=== PATIENT | female | born 1975 | race Caucasian/White ===

== ENCOUNTER → 2016-08-01 | Outpatient (CLI) | payer BC ==
[~2016-08-01] MED LIST: BECL0.072 INH; BUDESUS; CETI10TA10 PO; MTR600X PO; OXYC-643 PO; PRENTAB26 PO; ZNT/150 PO
--- NOTE | 2016-08-01 13:18 | DIAGNOSTIC IMAGING REPORT ---
LEFT KNEE 4 OR MORE CLINICAL HISTORY: LEFT KNEE PAIN COMPARISON STUDY: None. FINDINGS: No fracture or dislocation within the left knee. Cartilage spaces are maintained. Soft tissues unremarkable. No significant knee effusion. IMPRESSION: Unremarkable left knee. Electronically signed by: Alistair Reese M.D. 08/01/2016 1:16 PM Dictated Date/Time: 08/01/2016 1:14 PM
== END | disposition home or self-care (01) ==
LOC: C.RDSM 09:50
PROVIDERS: ATTEND Family Medicine
DX: M25.562 Pain in left knee (principal)